=== PATIENT | female | born 1945 | race Caucasian/White ===

== ENCOUNTER 2017-08-22 07:24 | Day surgery (SDC) | payer MEDICARE ==
--- NOTE | 2017-08-13 20:14 | CR ---
DATE OF CONSULTATION: 08/13/[address] Morales at for surgery 08/22/[address] Morales, Thank you for asking me to see Ms. Petty Soares in consultation prior to her foot surgery. Ms. Soares, is as you know, a 72-year-old female was enjoyed quite good health except for history of hypertension, hyperlipidemia. The patient reports overall she has felt good. She denies any fevers or chills, chest pain or shortness of breath. She has enjoyed the summer in [place], but has been limited in activity because of her toe, which frequently trips her. She is ready to proceeding get back to full activity. The patient does walk but cautiously. She denies any chest pain, palpitations, syncope or presyncope. Patient has history of depression, is on citalopram and pleased with the effects with little interest in changing. The patient is menopausal, she has been unsuccessful on coming off HRT. The patient is on lisinopril HCT, she reports compliance. REVIEW OF SYSTEMS: Otherwise negative. PAST MEDICAL HISTORY: 1. Hypertension. 2. Hyperlipidemia. 3. Depression. 4. OA. 5.MARIXA-BSO 1984 secondary to meorrhagia. 6. Bilateral bunionectomy. 7. G2, P2. 8.Breast reduction bilaterally 2011. 9. Statin intolerance with myalgias to Lipitor, simvastatin, pravastatin. 10. Hematuria 2013 with a negative evaluation with cysto and CT imaging. 11. Bladder suspension Fall [address] Rodriguez. THE PATIENT'S MEDICATIONS ARE: red yeast rice 600 mg one to two a day, Garlic daily Raw vinegar a tablespoon daily lisinopril HCT 07/11.52 two tablets daily estradiol 0.5 mg daily citalopram 20 mg daily baby aspirin daily multivitamin daily. ALLERGIES: The patient's drug allergies are none, but again intolerance to statins. FAMILY HISTORY: Father had of stroke at 85. Mom had premature heart attack at 54. A son has diabetes, a sister hypertension, another sister hypertension, grandparents with diabetes. SOCIAL HISTORY: The patient enjoys living in [place] in the summertime. She is a former smoker. She drinks about for alcohol beverages per week. PHYSICAL EXAMINATION: She is an overweight female in no acute distress with Vital signs: Weight 176, BMI 30, blood pressure 124/76 with a heart rate of 76. GENERAL: no acute distress. VITALS: HEENT: Head is normocephalic. Neck is supple. Pupils equal, reactive to light. Extraocular movements are intact. Her tympanic membranes bilaterally are quite scarred but not red. Tongue is midline. Neck is supple. No thyromegaly, JVD, carotid bruits. RESPIRATORY: Clear to auscultation, resonant percussion. BREASTS: Exam deferred. CARDIOVASCULAR: Regular rate and rhythm. No murmur, rub, gallop. ABDOMEN: Soft, nontender. No hepatosplenomegaly. GYNECOLOGIC: Deferred. EXTREMITIES: She has bilateral bunionectomy scars otherwise skin is healthy, pulses palpable. NEUROLOGIC: Alert and oriented. Cranial nerves II-XII are intact. LABORATORY DATA: This was done 08/06/17 with a normal CBC, med profile. Patient's last lipid panel was 04/10/2017 with a total cholesterol of 236 and LDL 144, triglycerides 95, HDL was 73. EKG done in my office 04/17/2017 shows normal sinus rhythm rate of 88, axis of 62 degrees, normal HI, QRS, QTC interval, normal R-wave progression, nonspecific ST-T wave changes, insignificant Q-waves II, III, AVF, but unchanged from previous electrocardiogram. Borderline LAD, no LVH, again no change compared EKG 03/08/15. IMPRESSION: Ms. Anh Soares is a 72-year-old female with cardiovascular risk factors positive for age, hypertension, hyperlipidemia, family history, has no signs or symptoms indicative of cardiovascular ischemia and is felt to be at low risk for cardiovascular complications from the proposed surgical intervention which can be further minimized by the following. 1. Hypertension. Hold lisinopril HCT a.m. of surgery. 2. Hyperlipidemia. Hold red yeast rice and garlic a.m. of surgery. She has refused statins because of myalgias. 3. Dysthymia. She will take her citalopram as usual the mid day the day before surgery. 4. Menopausal. She will hold her HRT a.m. of surgery. Thank you very much for this consultation. Please call with questions or concerns.
[~2017-08-22] VITALS: Ht 167.6 cm; Wt 77.1 kg
[~2017-08-22 07:24] MED LIST: ASPI1TAB PO; CITA20TA4 PO; GARL400T5 PO; LISINOP/HCTZ PO; MULT1TAB10 PO; RED1CAP5 PO
[2017-08-22] MEDS ORDERED: LR 1,000 ML IV ONE (07:30)
[2017-08-22] MEDS ORDERED: LIDOCAINE 1% MDV 20ML VIAL SC PRN (07:30)
[2017-08-22] MEDS ORDERED: MIDAZOLAM INJ 2 MG/2 ML VIAL (J2250) As Ordered ONE (08:20)
[2017-08-22] MEDS ORDERED: fentaNYL 100 MCG/2 ML INJECTION (J3010) As Ordered ONE ×2 (08:20→08:23)
[2017-08-22] MEDS ORDERED: dexameTHASONE 4 MG/ML 1ML VIAL (J1100) As Ordered ONE ×2 (08:57→09:53)
[2017-08-22] MEDS ORDERED: LIDOCAINE 1% SDV INJ 30 ML VIAL As Ordered ONE (08:57)
[2017-08-22] MEDS ORDERED: BUPIVACAINE HCL 0.5% 30 ML VIAL As Ordered ONE (08:58)
[2017-08-22] MEDS ORDERED: ONDANSETRON 4MG/2ML VIAL (J2405) As Ordered ONE (09:53)
[2017-08-22] MEDS ORDERED: PROPOFOL 200 MG/20 ML VIAL As Ordered ONE (09:53)
[2017-08-22] MEDS ORDERED: LIDOCAINE 2% INJ 100 MG/5 ML SDV (FOR ANES.) As Ordered ONE (09:53)
[2017-08-22] MEDS ORDERED: HYDR-3713 PO (10:49)
[2017-08-22 11:40] VITALS: BP 138/66
--- NOTE | 2017-08-23 06:39 | RO ---
DATE OF PROCEDURE: 08/22/2017 PREOPERATIVE DIAGNOSIS: Left hallux hammertoe/drop toe. POSTOPERATIVE DIAGNOSIS: Left hallux hammertoe/drop toe. PROCEDURE: Left hallux interphalangeal joint fusion. SURGEON: Reji Morales DPM CHECKERING MACHINE OPERATOR: None. ANESTHESIA: Monitored anesthesia care with preoperative injection of 15 mL of a 1:1 mixture of 1% lidocaine plain and 0.5% Marcaine plain. ESTIMATED BLOOD LOSS: Minimal. MATERIALS: A Monroe X Fuse implant, 0.045 K-wires, #3-0 and #4-0 Vicryl, #4-0 nylon. INJECTABLES: None. COMPLICATIONS: None. CONDITION: Stable. Rita Soares is a 72-year-old female who presents to [facility] with complaints of drop toe to her hallux. She had a tendon injury months ago, which was unable to be repaired. Her toe has been catching as she walks, interfering with normal gait. She presents today for surgical correction. The patient, site, and side were identified and marked in the preoperative holding area. Consent was reviewed and obtained. Risks, complications, and alternatives to the procedure were explained to the patient in detail. All questions were answered. DESCRIPTION OF PROCEDURE: Patient was brought to the operating room and placed on operating room table in supine position. Monitored anesthesia care was delivered by the anesthesia team. Preoperative injection of 15 mL of 1:1 mixture of 1% lidocaine plain and 0.5% Marcaine plain were injected into the left foot. Left foot was prepped and draped in a normal sterile fashion, and a tourniquet was applied to the ankle and inflated to 225 mmHg. A curvilinear incision was drawn over the hallux and carried through with a #15 blade. Dissection was carried until the level of the interphalangeal joint (IPJ) was identified. Cautery was used to maintained hemostasis. Transverse incision was made at the IPJ, exposing the head of the proximal phalanx and base of the distal phalanx. The cartilage was removed with a rongeur and smoothed with a rasp. Next, a reamer from the X Fuse kit was used to further remove cartilage. Each side was drilled and broached, and the X Fuse implant was inserted according to protocol. There was still noted to be a little bit of motion at the joint space, so cross K-wires were thrown, size 0.045. These were cut and bent. Good correction was noted on C-arm. Site was irrigated with normal saline. Extensor tendon repair was performed with #3-0 Vicryl, subcutaneous with #4-0 Vicryl, and skin closure with #4-0 nylon. Sterile dressing was applied. Tourniquet was deflated. Patient was brought to postanesthesia care unit (PACU) with vital signs stable and neurovascular status intact. She will be weightbearing as tolerated in a postoperative shoe. She will followup in office in 2 days.
== END 2017-08-22 12:05 | disposition home or self-care (01) ==
LOC: M SDC 07:24
PROVIDERS: ATTEND Podiatrist Foot & Ankle Surgery
DX: M20.42 Other hammer toe(s) (acquired), left foot (principal); M20.22 Hallux rigidus, left foot; I10 Essential (primary) hypertension; E78.4 Other hyperlipidemia; Z79.82 Long term (current) use of aspirin; F32.9 Major depressive disorder, single episode, unspecified; Z87.891 Personal history of nicotine dependence; Z79.899 Other long term (current) drug therapy
CPT/HCPCS: 28750; C1713; J0690; J1100; J2250; J2405; J3010

== ENCOUNTER → 2019-04-01 | Outpatient (REF) | payer MEDICARE ==
[~2019-04-01] MED LIST changes: -ASPI1TAB PO; +ASPI81TA26 PO; -CITA20TA4 PO; +CITA20TA6 PO; +ESTRADIOL; +HYDR-3713 PO; +REGL10TA6 PO; +ROSU5TAB4
[2019-04-11 08:06] LABS: D001-IgE D pteronyssinus <0.10 kU/L (Class 0); E001-IgE Cat Epith/Dander < 0.10 kU/L (Class 0); E005-IgE Dog Dander < 0.10 kU/L (Class 0); G002-IgE Bermuda Grass < 0.10 kU/L (Class 0); G008-IgE Kentucky Bluegrass < 0.10 kU/L (Class 0); M001-IgE Penicillium chrysogen < 0.10 kU/L (Class 0); M002 IgE Cladosporium herbaru < 0.10 kU/L (Class 0); M003 IgE Aspergillus fumigatu < 0.10 kU/L (Class 0); M006-IgE Alternaria alternata < 0.10 kU/L (Class 0); T001-IgE Maple/Box Elder < 0.10 kU/L (Class 0); T003-IgE Common Silver Birch < 0.10 kU/L (Class 0); T006-IgE Cedar, Mountain < 0.10 kU/L (Class 0); T007-IgE Oak, White < 0.10 kU/L (Class 0); T008-IgE Elm, American < 0.10 kU/L (Class 0); T015-IgE Ash, White < 0.10 kU/L (Class 0); T041-IgE Hickory, White < 0.10 kU/L (Class 0); T070-IgE White Mulberry < 0.10 kU/L (Class 0); W001-IgE Ragweed, Short < 0.10 kU/L (Class 0); W009-IgE Plantain, English 0.11 kU/L (Class 0/I); W014-IgE Pigweed, Rough < 0.10 kU/L (Class 0); W018-IgE Sheep Sorrel < 0.10 kU/L (Class 0)
== END ==
LOC: M SFHCPLAZ 12:39
PROVIDERS: ATTEND Nurse Practitioner Adult Health
DX: J32.9 Chronic sinusitis, unspecified (principal)
CPT/HCPCS: 36415; 86003; G0463

== ENCOUNTER → 2020-07-24 | Outpatient (CLI) | payer MEDICARE ==
[~2020-07-24] MED LIST changes: -ROSU5TAB4; +ROSU5TAB5
== END ==
LOC: M LABSMTC 08:08
PROVIDERS: ATTEND Orthopaedic Surgery
DX: Z20.828 Contact with and (suspected) exposure to other viral communicable diseases (principal)

== ENCOUNTER → 2021-04-11 | Outpatient (REF) | payer MEDICARE ==
[2021-04-11 12:15] LABS: BASO # 0.1 10^3/uL (0.0-0.2); BASO % 1.1 % (0.0-1.0); EOS # 0.4 10^3/uL (0.0-0.5); EOS % 7.5 % (0.0-3.0); HEMATOCRIT 42.9 % (36.0-47.0); HEMOGLOBIN 13.7 g/dl (12.0-15.5); LYMPH # 1.4 10^3/uL (1.5-5.0); LYMPH % 29.1 % (24.0-44.0); MEAN CORPUSCULAR HEMOGLOBIN 29.7 pg (27.0-33.0); MEAN CORPUSCULAR HGB CONC 31.9 g/dl (32.0-36.5); MEAN CORPUSCULAR VOLUME 92.9 fl (80.0-96.0); MONO # 0.5 10^3/uL (0.0-0.8); MONO % 10.1 % (2.0-8.0); NEUTROPHILS # 2.4 10^3/uL (1.5-8.5); NEUTROPHILS % 52.2 % (36.0-66.0); PLATELET COUNT, AUTOMATED 205 10^3/uL (150-450); RED BLOOD COUNT 4.62 10^6/uL (4.00-5.40); WHITE BLOOD COUNT 4.7 10^3/uL (4.0-10.0)
[2021-04-11 12:55] LABS: ALBUMIN 4.2 GM/DL (3.2-5.2); ALT/SGPT 25 U/L (12-78); BILIRUBIN,TOTAL 0.6 MG/DL (0.2-1.0); BLOOD UREA NITROGEN 17 MG/DL (7-18); CALCIUM LEVEL 9.6 MG/DL (8.8-10.2); CARBON DIOXIDE LEVEL 30 MEQ/L (21-32); CHLORIDE LEVEL 105 MEQ/L (98-107); CHOLESTEROL LEVEL 218 MG/DL (<200); CHOLESTEROL RISK RATIO 2.691 (<5); CREATININE FOR GFR 0.71 MG/DL (0.55-1.30); FREE T4 1.02 NG/DL (0.76-1.46); GLOMERULAR FILTRATION RATE > 60.0 (>39); GLUCOSE, FASTING 98 MG/DL (70-100); HDL CHOLESTEROL 81 MG/DL (>40); LDL CHOLESTEROL 119 MG/DL (<100); NON-HDL-C 137 MG/DL; POTASSIUM SERUM 4.2 MEQ/L (3.5-5.1); SODIUM LEVEL 139 MEQ/L (136-145); THYROID STIMULATING HORMONE 0.998 uIU/ML (0.358-3.740); TOTAL PROTEIN 6.8 GM/DL (6.4-8.2); TRIGLYCERIDES LEVEL 89 MG/DL (<150)
== END ==
LOC: M SFHCCLAY 08:29
PROVIDERS: ATTEND Nurse Practitioner Family
DX: E78.2 Mixed hyperlipidemia (principal); I10 Essential (primary) hypertension; R29.6 Repeated falls; M54.5 Low back pain; G89.29 Other chronic pain
CPT/HCPCS: 80053; 80061; 84439; 84443; 85025; G0463

== ENCOUNTER → 2022-10-17 | Outpatient (REF) | payer MEDICARE ==
[2022-10-17 13:58] LABS: CHLORIDE LEVEL 100 MMOL/L (98-107); SODIUM LEVEL 141 MMOL/L (136-145)
[2022-10-17 13:59] LABS: ALBUMIN 4.1 G/DL (3.2-5.2); CARBON DIOXIDE LEVEL 31 MMOL/L (20-31)
[2022-10-17 14:04] LABS: BILIRUBIN,TOTAL 0.5 MG/DL (0.3-1.2); BLOOD UREA NITROGEN 21 MG/DL (9-23); CALCIUM LEVEL 10.2 MG/DL (8.3-10.6); GLUCOSE, FASTING 102 MG/DL (74-106)
[2022-10-17 14:05] LABS: ALKALINE PHOSPHATASE 72 U/L (46-116)
[2022-10-17 14:06] LABS: ALT/SGPT 25 U/L (7.0-40); AST/SGOT 30 U/L (<34); CREATININE FOR GFR 0.85 MG/DL (0.55-1.30); GLOMERULAR FILTRATION RATE > 60.0 (>39); TOTAL PROTEIN 6.7 G/DL (5.7-8.2)
== END ==
LOC: M SFHCCLAY 08:40
PROVIDERS: ATTEND Nurse Practitioner Family
DX: I10 Essential (primary) hypertension (principal)

== ENCOUNTER → 2022-11-30 | Outpatient (CLI) | payer MEDICARE | LOC: M CARPUL 09:50 | PROVIDERS: ATTEND Nurse Practitioner Family | DX: I10 Essential (primary) hypertension (principal) ==

== ENCOUNTER → 2023-05-28 | Outpatient (REF) | payer MEDICARE ==
[2023-05-28 17:34] LABS: BASO # 0.1 10^3/uL (0.0-0.2); BASO % 1.3 % (0.0-1.0); EOS # 0.4 10^3/uL (0.0-0.5); EOS % 8.7 % (0.0-3.0); HEMATOCRIT 41.4 % (36.0-47.0); HEMOGLOBIN 13.3 g/dl (12.0-15.5); LYMPH # 1.4 10^3/uL (1.5-5.0); LYMPH % 30.6 % (24.0-44.0); MEAN CORPUSCULAR HEMOGLOBIN 29.2 pg (27.0-33.0); MEAN CORPUSCULAR HGB CONC 32.1 g/dl (32.0-36.5); MONO # 0.5 10^3/uL (0.0-0.8); MONO % 10.3 % (2.0-8.0); NEUTROPHILS # 2.2 10^3/uL (1.5-8.5); NEUTROPHILS % 49.1 % (36.0-66.0); RED BLOOD COUNT 4.55 10^6/uL (4.00-5.40); WHITE BLOOD COUNT 4.5 10^3/uL (4.0-10.0)
[2023-05-28 17:57] LABS: ALBUMIN 4.1 G/DL (3.2-5.2); ALKALINE PHOSPHATASE 65 U/L (46-116); ALT/SGPT 21 U/L (7.0-40); AST/SGOT 31 U/L (<34); BILIRUBIN,TOTAL 0.7 MG/DL (0.3-1.2); BLOOD UREA NITROGEN 17 MG/DL (9-23); CALCIUM LEVEL 9.2 MG/DL (8.3-10.6); CARBON DIOXIDE LEVEL 31 MMOL/L (20-31); CHLORIDE LEVEL 102 MMOL/L (98-107); CHOLESTEROL LEVEL 187 MG/DL (<200); CHOLESTEROL RISK RATIO 2.25 (<5); CREATININE FOR GFR 0.79 MG/DL (0.55-1.30); GLOMERULAR FILTRATION RATE > 60.0 (>39); GLUCOSE, FASTING 108 MG/DL (74-106); HDL CHOLESTEROL 83.1 MG/DL (>40); LDL CHOLESTEROL 88.9 MG/DL (<100); NON-HDL-C 103.9 MG/DL; POTASSIUM SERUM 4.3 MMOL/L (3.5-5.1); SODIUM LEVEL 138 MMOL/L (136-145); TOTAL PROTEIN 6.7 G/DL (5.7-8.2); TRIGLYCERIDES LEVEL 75 MG/DL (<150)
[2023-05-28 17:58] LABS: THYROID STIMULATING HORMONE 0.842 uIU/ML (0.55-4.78)
[2023-05-28 17:59] LABS: FREE T4 1.22 NG/DL (0.89-1.76)
== END ==
LOC: M SFHCCLAY 10:19
PROVIDERS: ATTEND Nurse Practitioner Family
DX: I10 Essential (primary) hypertension (principal); E78.2 Mixed hyperlipidemia; R29.6 Repeated falls; G89.29 Other chronic pain

== ENCOUNTER → 2023-11-27 | Outpatient (REF) | payer MEDICARE | LOC: M SFHCDERM 13:17 | PROVIDERS: ATTEND Physician Assistant | DX: D22.5 Melanocytic nevi of trunk (principal); D22.61 Melanocytic nevi of right upper limb, including shoulder ==

== ENCOUNTER → 2024-01-16 | Outpatient (REF) | payer MEDICARE | LOC: M SFHCCLAY 15:54 | PROVIDERS: ATTEND Physician Assistant | DX: N94.9 Unspecified condition associated with female genital organs and menstrual cycle (principal); Z79.899 Other long term (current) drug therapy ==

== ENCOUNTER → 2024-02-22 | Outpatient (CLI) | payer MEDICARE | LOC: M PLAIMG 12:20 | PROVIDERS: ATTEND Nurse Practitioner Family | DX: M47.816 Spondylosis without myelopathy or radiculopathy, lumbar region (principal); R20.2 Paresthesia of skin ==

== ENCOUNTER → 2024-04-07 | Outpatient (REF) | payer MEDICARE ==
[~2024-04-07] MED LIST changes: +ROSU5TAB40; -ROSU5TAB5
[2024-04-07 17:32] LABS: BASO # 0.1 10^3/uL (0.0-0.2); BASO % 1.3 % (0.0-1.0); EOS # 0.3 10^3/uL (0.0-0.5); EOS % 5.4 % (0.0-3.0); HEMATOCRIT 40.9 % (36.0-47.0); HEMOGLOBIN 13.1 g/dl (12.0-15.5); LYMPH # 1.2 10^3/uL (1.5-5.0); LYMPH % 21.2 % (24.0-44.0); MEAN CORPUSCULAR HEMOGLOBIN 29.6 pg (27.0-33.0); MEAN CORPUSCULAR VOLUME 92.5 fl (80.0-96.0); MONO # 0.4 10^3/uL (0.0-0.8); MONO % 7.9 % (2.0-8.0); NEUTROPHILS # 3.6 10^3/uL (1.5-8.5); NEUTROPHILS % 63.8 % (36.0-66.0); RED BLOOD COUNT 4.42 10^6/uL (4.00-5.40); WHITE BLOOD COUNT 5.6 10^3/uL (4.0-10.0)
[2024-04-07 17:34] LABS: ALBUMIN 3.9 G/DL (3.2-5.2); ALKALINE PHOSPHATASE 67 U/L (46-116); ALT/SGPT 27 U/L (7.0-40); AST/SGOT 30 U/L (<34); BILIRUBIN,TOTAL 0.8 MG/DL (0.3-1.2); BLOOD UREA NITROGEN 15 MG/DL (9-23); CALCIUM LEVEL 9.6 MG/DL (8.3-10.6); CARBON DIOXIDE LEVEL 31 MMOL/L (20-31); CHLORIDE LEVEL 104 MMOL/L (98-107); CHOLESTEROL LEVEL 187 MG/DL (<200); CHOLESTEROL RISK RATIO 2.21 (<5); CREATININE FOR GFR 0.81 MG/DL (0.55-1.30); GLOMERULAR FILTRATION RATE > 60.0 (>39); GLUCOSE, FASTING 103 MG/DL (74-106); HDL CHOLESTEROL 84.3 MG/DL (>40); LDL CHOLESTEROL 92.9 MG/DL (<100); NON-HDL-C 102.7 MG/DL; PLATELET COUNT, AUTOMATED 158 10^3/uL (150-450); SODIUM LEVEL 138 MMOL/L (136-145); TOTAL PROTEIN 6.5 G/DL (5.7-8.2); TRIGLYCERIDES LEVEL 49 MG/DL (<150)
[2024-04-07 17:35] LABS: FREE T4 1.17 NG/DL (0.89-1.76)
[2024-04-07 17:58] LABS: HEMOGLOBIN A1c 5.5 % (4.0-6.0)
== END ==
LOC: M SFHCCLAY 10:12
PROVIDERS: ATTEND Nurse Practitioner Family
DX: Z00.00 Encounter for general adult medical examination without abnormal findings (principal); R29.6 Repeated falls; G89.29 Other chronic pain; I10 Essential (primary) hypertension; E78.2 Mixed hyperlipidemia; Z13.1 Encounter for screening for diabetes mellitus

== ENCOUNTER → 2025-04-07 | Outpatient (REF) | payer MEDICARE ==
[~2025-04-07] MED LIST changes: -ROSU5TAB40; +ROSU5TAB49
[2025-04-07 18:34] LABS: BASO # 0.1 10^3/uL (0.0-0.2); BASO % 0.9 % (0.0-1.0); EOS # 0.2 10^3/uL (0.0-0.5); EOS % 4.4 % (0.0-3.0); HEMATOCRIT 40.3 % (36.0-47.0); HEMOGLOBIN 13.3 g/dl (12.0-15.5); LYMPH # 1.5 10^3/uL (1.5-5.0); LYMPH % 27.2 % (24.0-44.0); MEAN CORPUSCULAR HEMOGLOBIN 30.4 pg (27.0-33.0); MEAN CORPUSCULAR VOLUME 92.2 fl (80.0-96.0); MONO # 0.5 10^3/uL (0.0-0.8); MONO % 9.3 % (2.0-8.0); NEUTROPHILS # 3.2 10^3/uL (1.5-8.5); PLATELET COUNT, AUTOMATED 187 10^3/uL (150-450); RED BLOOD COUNT 4.37 10^6/uL (4.00-5.40); WHITE BLOOD COUNT 5.5 10^3/uL (4.0-10.0)
[2025-04-07 18:38] LABS: ALBUMIN 4.1 G/DL (3.2-5.2); BILIRUBIN,TOTAL 0.6 MG/DL (0.3-1.2); CALCIUM LEVEL 9.4 MG/DL (8.3-10.6); CHOLESTEROL RISK RATIO 2.32 (<5); CREATININE FOR GFR 0.92 MG/DL (0.55-1.30); GLOMERULAR FILTRATION RATE 63.3 (>39); LDL CHOLESTEROL 92.4 MG/DL (<100); TOTAL PROTEIN 6.7 G/DL (5.7-8.2)
[2025-04-07 18:42] LABS: FREE T4 1.31 NG/DL (0.89-1.76)
[2025-04-07 18:43] LABS: THYROID STIMULATING HORMONE 1.247 uIU/ML (0.55-4.78)
[2025-04-07 19:12] LABS: HEMOGLOBIN A1c 5.4 % (4.0-6.0)
== END ==
LOC: M SFHCCLAY 09:51
PROVIDERS: ATTEND Nurse Practitioner Family
DX: R29.6 Repeated falls (principal); G89.29 Other chronic pain; I10 Essential (primary) hypertension; E78.2 Mixed hyperlipidemia; Z13.1 Encounter for screening for diabetes mellitus